=== PATIENT | female | born 1960 | race Caucasian/White ===

== ENCOUNTER → 2016-12-11 | Outpatient (CLI) | payer BC ==
[~2016-12-11] MED LIST: OXYC1TAB3 PO; VITAMIN
--- NOTE | 2016-12-11 13:59 | MAMMOGRAPHY REPORT ---
BILATERAL DIGITAL DIAGNOSTIC MAMMOGRAM TOMOSYNTHESIS WITH CAD AND TARGETED RIGHT ULTRASOUND: 12/11/19 CLINICAL HISTORY: Interval follow-up of left breast calcifications. TECHNIQUE: Breast tomosynthesis in addition to standard 2D mammography was performed. Current study was also evaluated with a Computer Aided Detection (CAD) system. Bilateral CC and MLO 2-D and genaro synthesis images and spot magnification left CC and ML views were obtained. COMPARISON: Comparison is made to exams dated: 12/05/2015 mammogram, 05/31/2015 ultrasound, 09/21/2014 mammogram, 10/11/2014 mammogram, 09/29/2013 mammogram, and 01/23/2012 mammogram - [facility]. BREAST COMPOSITION: The tissue of both breasts is heterogeneously dense, which may obscure small ma sses. FINDINGS: Spot magnification views of the left breast again demonstrate a small cluster of calcific ations in the left upper outer quadrant. The calcifications demonstrate layering on the MLO view, s uggestive of benign milk of calcium. The calcifications are stable compared to prior exams dating b ack to at least 2012. Given the benign morphology and long-term stability, they are considered malka gn. There is an oval circumscribed lobulated 2 cm mass in the right upper outer quadrant middle depth, w hich is increased compared to prior exams. Other smaller benign-appearing masses are again noted bi laterally, which are considered benign given the multiplicity and bilaterality and likely represent cysts. Targeted ultrasound was performed of the right breast in the region of the mammographic mass. In th e right breast at 12:00, 3 cm from the nipple, there is an oval anechoic circumscribed mass which me asures 1.6 x 0.8 x 1.9 cm. This corresponds with the mammographic mass and is consistent with a chas ign simple cyst. IMPRESSION: ACR BI-RADS CATEGORY 2: BENIGN, TARGETED ULTRASOUND ACR BI-RADS CATEGORY 2: BENIGN 1. Small cluster of calcifications in the left upper outer quadrant is stable dating back to the exam, and is benign and compatible with milk of calcium. 2. Benign 1.9 cm simple cyst in the right breast at 12:00. There is no mammographic or targeted sonographic evidence of malignancy. A 1 year screening mammogra m is recommended. The patient has been verbally notified of the results. Approximately 10% of breast cancers are not detected with mammography. A negative mammographic repor t should not delay biopsy if a clinically suggestive mass is present. Juli Rene M.D. ah/:12/11/2016 08:14:40 Product Tester [employer]: Katharine LOMELI(R)(M), [facility] letter sent: Normal 1/2 BI-RADS Code: ACR BI-RADS Category 2: Benign Ultrasound BI-RADS: ACR BI-RADS Category 2: Benign
== END | disposition home or self-care (01) ==
LOC: C.MAMM 07:45
PROVIDERS: ATTEND Obstetrics & Gynecology
DX: R92.1 Mammographic calcification found on diagnostic imaging of breast (principal); N60.01 Solitary cyst of right breast

== ENCOUNTER → 2017-12-30 | Outpatient (CLI) | payer BC | END | disposition home or self-care (01) | LOC: C.PAPS 11:35 | PROVIDERS: ATTEND Obstetrics & Gynecology | DX: Z01.419 Encounter for gynecological examination (general) (routine) without abnormal findings (principal); Z11.51 Encounter for screening for human papillomavirus (HPV) ==

== ENCOUNTER → 2018-01-06 | Outpatient (CLI) | payer BC ==
--- NOTE | 2018-01-07 14:01 | MAMMOGRAPHY REPORT ---
BILATERAL DIGITAL SCREENING MAMMOGRAM TOMOSYNTHESIS WITH CAD: 01/06/2018 CLINICAL HISTORY: Routine screening. TECHNIQUE: Breast tomosynthesis in addition to standard 2D mammography was performed. Current study was also evaluated with a Computer Aided Detection (CAD) system. COMPARISON: Comparison is made to exams dated: 12/11/2016 mammogram, 12/05/2015 mammogram, 09/21/2014 m ammogram, 09/20/2013 mammogram, 01/23/2012 mammogram, and 01/22/2011 mammogram - [facility]. BREAST COMPOSITION: There are scattered areas of fibroglandular density in both breasts. FINDINGS: There are fluctuating circumscribed masses in the breasts. The dominant circumscribed and lobulated mass in the 12:00 right breast currently measures 20 mm and was previously documented to re present an anechoic benign simple cyst on ultrasound. No suspicious spiculated or irregular mass, ar chitectural distortion or cluster of new, suspicious microcalcifications is seen. IMPRESSION: ACR BI-RADS CATEGORY 1: NEGATIVE There is no mammographic evidence of malignancy. A 1 year screening mammogram is recommended. The pa tient will receive written notification of the results. Approximately 10% of breast cancers are not detected with mammography. A negative mammographic report should not delay biopsy if a clinically suggestive mass is present. Liliya Howe M.D. ay/:01/06/2018 16:42:34 Picture Framer: Mariola EDWARDS)([place]), [facility] letter sent: Normal 1/2 BI-RADS Code: ACR BI-RADS Category 1: Negative
== END | disposition home or self-care (01) ==
LOC: C.MAMM 07:13
PROVIDERS: ATTEND Obstetrics & Gynecology
DX: Z12.31 Encounter for screening mammogram for malignant neoplasm of breast (principal)